=== PATIENT | female | born 1975 | race Caucasian/White ===

== ENCOUNTER 2019-08-05 18:52 | Emergency (ER) | payer OTHER ==
[~2019-08-05] VITALS: Ht 157.5 cm; Wt 63.6 kg
[~2019-08-05 18:52] MED LIST: LIDOcaine 1% w/EPI 1:100,000 30ml vial (MDV) ONE; NO HOME MEDS; [UNRECOGNIZED DRUG - CODE] TP
[2019-08-05 18:56] VITALS: BP 162/82
[2019-08-05] MEDS ORDERED: TETanus/Pertussis (Acell)/Diphther VAC/PF (Tdap-Adult) 0.5ml syringe IMVAC ONE (19:10)
[2019-08-05] MEDS ORDERED: DOXYCYCLINE 100MG CAPSULE PO STA (19:39)
[2019-08-05] MEDS ORDERED: DOXY100C43 PO (19:40)
== END 2019-08-05 20:15 | disposition home or self-care (01) ==
LOC: ER 18:53
DX: L02.415 Cutaneous abscess of right lower limb (principal); Z88.0 Allergy status to penicillin; Z88.2 Allergy status to sulfonamides; Z79.899 Other long term (current) drug therapy
CPT/HCPCS: 10060; 90471; 90715; 99283

== ENCOUNTER 2019-11-01 15:09 | Emergency (ER) | payer MEDICAID ==
[~2019-11-01] VITALS: Ht 160 cm; Wt 66.5 kg
[~2019-11-01 15:09] MED LIST changes: -LIDOcaine 1% w/EPI 1:100,000 30ml vial (MDV) ONE
[2019-11-01 15:17] VITALS: BP 145/89
[2019-11-01] MEDS ORDERED: CLIN150C8 PO (15:52)
== END 2019-11-01 16:00 | disposition home or self-care (01) ==
LOC: ER 15:09
DX: L02.811 Cutaneous abscess of head [any part, except face] (principal); Z88.0 Allergy status to penicillin; Z88.2 Allergy status to sulfonamides; Z79.899 Other long term (current) drug therapy
CPT/HCPCS: 99283

== ENCOUNTER 2021-10-09 14:27 | Emergency (ER) | payer MEDICAID ==
[~2021-10-09] VITALS: Ht 157.5 cm; Wt 65.4 kg
[~2021-10-09 14:27] MED LIST changes: +CLIN150C8 PO
[2021-10-09 14:43] VITALS: BP 135/88
--- NOTE | 2021-10-09 16:59 | NUR ---
3 weeks ago, poison oak on R ankle, scratched it to the point that it opened up, then scabbed over. 2 days ago, started getting pain and swelling to sight, and yesterday puss came out and foot swollen. R thigh is also swollen and painful
[2021-10-09] MEDS ORDERED: DOXY100C77 PO (17:31)
[2021-10-09] MEDS ORDERED: MUPI22OI30 TOP (17:31)
[2021-10-09] MEDS ORDERED: CEPH250T PO (17:31)
[2021-10-09] MEDS ORDERED: DOXYCYCLINE 100MG CAPSULE PO STA (17:39)
[2021-10-09] MEDS ORDERED: cephalexin 250mg capsule PO ONE (17:40)
== END 2021-10-09 18:02 | disposition home or self-care (01) ==
LOC: ER 14:27
DX: L03.115 Cellulitis of right lower limb (principal); Z88.0 Allergy status to penicillin; Z88.2 Allergy status to sulfonamides; Z79.899 Other long term (current) drug therapy
CPT/HCPCS: 99283